=== PATIENT | male | born 1940 | race Caucasian/White ===

== ENCOUNTER → 2017-01-27 | Day surgery (SDC) | payer MEDICARE ==
[~2017-01-27] MED LIST: ACETAMINOPHEN 1000 MG/100 ML VIAL IV ONE; BUPIVACAINE/EPINEPHRINE 0.25% PF 30 ML VIAL INFIL ONE; GABA300C3 PO; LACTATED RINGER'S 1000 ML INJ 1,000 ML ONE; MELO7.5 PO; MIDAZOLAM HCL 2 MG/2 ML VIAL ONE; MULTTAB23 MT; ONDANSETRON HCL 4 MG/2 ML VIAL IV PUSH ONE; PROPOFOL 200 MG/20 ML AMP IV ONE; SIMV20TA PO; TAMS5CAP PO; ZANA4CAP PO
--- NOTE | 2017-01-27 08:49 | TN ---
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 PROCEDURE Elliptical incision measuring 2 x 1 cm to remove the offending lesion. ANESTHESIA TIVA. SURGEON Dr. Maria T ANTHONY The patient is a pleasant 76-year gentleman who has a squamous cell carcinoma to the top of his scalp. He has asked me to excise it. PROCEDURE The patient taken to the operating room, placed in the supine position. After anesthesia, his scalp is prepped with Betadine. It had been previously marked. An elliptical incision measuring 1 x 2 cm was made around the offending lesion. It is oriented length valladares and lateral. It is in the midline of his scalpel. After we anesthetized the area, we made this 2 x 1 cm elliptical incision. The specimen is removed. The anterior edge was marked with a superior stitch for orientation. The area in question is irrigated. Hemostasis is used with the electrocautery device. We then just reapproximate the defect with 3-0 nylon interrupted suture. A sterile bandage was applied. The patient tolerated the procedure well and had no immediate postop complications. MD MATILDE Stovall/BASSAM /8:32 AM /8:41 AM
== END | disposition home or self-care (01) ==
LOC: ESDC 06:37
PROVIDERS: ATTEND Surgery
DX: C44.42 Squamous cell carcinoma of skin of scalp and neck (principal)
CPT/HCPCS: 00300; 11622; 88305; J0131; J2250; J2405; J3010; J7120

== ENCOUNTER 2017-11-03 08:48 | Day surgery (SDC) | payer MEDICARE ==
[~2017-11-03] VITALS: Ht 182.9 cm; Wt 104.5 kg
[~2017-11-03 08:48] MED LIST changes: -ACETAMINOPHEN 1000 MG/100 ML VIAL IV ONE; +ALPH600C; -BUPIVACAINE/EPINEPHRINE 0.25% PF 30 ML VIAL INFIL ONE; +CINN500C2 PO; -GABA300C3 PO; +GABA300C5 PO; -LACTATED RINGER'S 1000 ML INJ 1,000 ML ONE; -MELO7.5 PO; +METF500T PO; -MIDAZOLAM HCL 2 MG/2 ML VIAL ONE; +MULT-65 PO; -MULTTAB23 MT; -ONDANSETRON HCL 4 MG/2 ML VIAL IV PUSH ONE; -PROPOFOL 200 MG/20 ML AMP IV ONE; +TAMS0.4C4; -TAMS5CAP PO; +TIZA4CAP3 PO; -ZANA4CAP PO
[2017-11-03 09:09] VITALS: BP 155/81; PULSE 71; RESP 20; TEMP 97.6; O2SAT 95
[2017-11-03 09:48] LABS: BASOPHIL % 0.4 % (0.0-2.0); EOSINOPHIL # 0.1 TH/MM3 (0-0.4); EOSINOPHIL % 1.1 % (0.0-4.0); HEMATOCRIT 34.9 % (39.0-51.0); HEMOGLOBIN 12.2 GM/DL (13.0-17.0); MEAN CELL VOLUME 84.5 FL (80.0-100.0); MEAN CORPUSCULAR HEMOGLOBIN 29.6 PG (27.0-34.0); MEAN PLATELET VOLUME 8.8 FL (7.0-11.0); MONO % 11.1 % (0.0-8.0); MONOCYTE # 0.8 TH/MM3 (0-0.9); NEUT % 58.4 % (16.0-70.0); PLATELET COUNT 83 TH/MM3 (150-450); RED BLOOD COUNT 4.13 MIL/MM3 (4.50-5.90); RED CELL DISTRIBUTION WIDTH 15.3 % (11.6-17.2); WHITE BLOOD COUNT 6.9 TH/MM3 (4.0-11.0)
[2017-11-03 09:59] LABS: PROTHROMBIN TIME - PATIENT 11.5 SEC (9.8-11.6)
[2017-11-03] MEDS ORDERED: SODIUM CHLOR 0.9% 1000 ML INJ 1,000 ML IV SCH (10:00)
[2017-11-03 10:01] LABS: INTERNATIONAL NORMALIZED RATIO 1.1 RATIO
[2017-11-03 10:27] LABS: OVALOCYTES 1+ (NORMAL)
[2017-11-03 10:28] LABS: ACANTHOCYTES OCC (NORMAL)
[2017-11-03] MEDS ORDERED: fentaNYL CITRATE 250 MCG/5 ML AMP ONE (11:55)
[2017-11-03] MEDS ORDERED: MIDAZOLAM HCL 5 MG/5 ML VIAL ONE (11:55)
--- NOTE | 2017-11-03 13:04 | PD.RAD ---
Post CT Procedure Prog Note Pre Procedure Diagnosis: (1) Melanoma Post Procedure Diagnosis: (1) Melanoma Procedure Date: November 03, 2017 Supervising Radiologist: Mulugeta Aggarwal Anesthesia: Local, Conscious Sedation Plan of Activity Patient to Unit: ROPU Patient Condition: Good See PACS Report for procedural detail/treatment Biopsy Imaging Guidance: CT Side: Left Biopsy Procedure: Bone Marrow Specimen: Core Biopsy, Fine Needle Aspirate Findings: Left ilium Mulugeta Aggarwal MD November 03, 2017 13:04
[2017-11-03 13:10] VITALS: BP 135/68; PULSE 65; RESP 16; TEMP 97.6; O2SAT 90
[2017-11-03 13:25] VITALS: BP 123/73; PULSE 67; RESP 16; O2SAT 94
[2017-11-03 13:40] VITALS: BP 123/73; PULSE 65; RESP 16; O2SAT 94
[2017-11-03 14:10] VITALS: BP 130/63; PULSE 63; RESP 16; O2SAT 94
[2017-11-03 14:40] VITALS: BP 131/71; PULSE 65; RESP 16; O2SAT 94
--- NOTE | 2017-11-03 14:58 | RADRPT ---
EXAM DATE: 11/03/2017 2:51 PM EDT AGE/SEX: 77 years / Male INDICATIONS: Malignant melanoma. CLINICAL DATA: This is the patient's initial encounter. Patient reports that signs and symptoms have been present for 1 day and indicates a pain score of 0/10. MEDICAL/SURGICAL HISTORY: Malignancy. Diverticulitis. Diabetes mellitus type II. Malignant m elanoma. BPH. Cholecystectomy. Vasectomy. COMPARISON: No prior [facility] exams available for comparison. SEDATION TIME (min): 15 BIOPSY SITE: Left pelvic ilium MEDICATION(S): 2.5 mg midazolam (Versed) IV 150 mcg fentanyl (Sublimaze) IV DEVICE(S): 20 gauge BARD biopsy needle . . PROCEDURE: CT guided Left pelvic ilium biopsy Conscious sedation with continuous EKG and oximetry monitoring. Prior to the procedure informed consent was obtained. Any appropriate prior imaging studies were rev iewed. Using automated exposure control and adjustment of the mA and/or kV according to patient size , radiation dose was kept as low as reasonably achievable to obtain optimal diagnostic quality images . DICOM format image data is available electronically for review and comparison. The site was prepped in a sterile fashion. Full sterile technique was used, including cap, mask, marii rile gloves and gown and a large sterile sheet. Hand hygiene and 2% chlorhexidine and/or betadine/al cohol prep was utilized per protocol for cutaneous antisepsis. The skin and subcutaneous tissues wer e infiltrated with local anesthetic solution. With CT guidance the previously identified target was localized. Biopsy was performed using the presc ribed needle as above. Following biopsy marrow aspiration was performed with repeat puncture. Adequa te hemostasis was obtained with compression at the puncture site. Follow-up CT scan reveals no hemorrhage. Conscious sedation was performed with the prescribed dosages and duration as above in the presence of an independent trained radiology nurse to assist in the monitoring of the patient. EKG and oximetry remained stable throughout the procedure. The patient tolerated the procedure well and there were no complications. The patient was sent to Radiology Outpatient Unit in stable condition. CONCLUSION: 1. Uncomplicated CT guided bone marrow aspirate. 2. Uncomplicated CT guided bone marrow biopsy. Electronically signed by: Mulugeta Aggarwal MD 11/03/2017 2:57 PM EDT
== END 2017-11-03 15:00 | disposition home or self-care (01) ==
LOC: HRAD 08:48 → HRIP 08:55 → HRAD 15:00
PROVIDERS: ATTEND Internal Medicine Hematology & Oncology
DX: D69.6 Thrombocytopenia, unspecified (principal); C43.9 Malignant melanoma of skin, unspecified; E11.9 Type 2 diabetes mellitus without complications; N40.0 Benign prostatic hyperplasia without lower urinary tract symptoms; K57.92 Diverticulitis of intestine, part unspecified, without perforation or abscess without bleeding; M51.37 Other intervertebral disc degeneration, lumbosacral region
CPT/HCPCS: 38222; 77012; 85025; 85097; 85610; 85730; 88184; 88185; 88237; 88264; 88280; 88305; 88311; 88313; 99152; C1830; J2250; J3010; J7030

== ENCOUNTER 2018-05-25 06:25 | Inpatient (IN) ==
[2018-05-25] MEDS ORDERED: Metoprolol Tartrate 25 MG Tablet PO ONE (07:00)
[2018-05-25] MEDS ORDERED: Vancomycin Inj 1,000 MG in Sodium Chlor 0.9% Inj 250 ML IV.SIG ONE (07:00)
[2018-05-25] MEDS ORDERED: Chlorhexidine Gluconate 2% 1 Pack (2 Cloths) TOPICAL ONE (07:00)
[2018-05-25] MEDS ORDERED: Sodium Chlor 0.9% Inj 500 ML IV.CONT ONE (07:00)
[2018-05-25] MEDS ORDERED: Thrombin Topical Soln 5,000 UNIT Vial TOPICAL ONE (07:03)
[2018-05-25] MEDS ORDERED: ceFAZolin 1 GM Premix Inj 0 GM/0 ML PIGGYBACK IV.SIG ONE (07:03)
[2018-05-25] MEDS ORDERED: Gelatin Size 100 Topical Foam ONE (07:03)
[2018-05-25] MEDS ORDERED: Bupivacaine/Epinephrine 0.5% Inj 50 ML Vial ONE (07:03)
[2018-05-25] MEDS ORDERED: Propofol Inj 500 MG/50 ML Vial ONE (07:16)
[2018-05-25] MEDS ORDERED: fentaNYL Citrate Inj 250 MCG/5 ML Ampul ONE (07:16)
[2018-05-25] MEDS ORDERED: fentaNYL Citrate Inj 100 MCG/2 ML Ampul ONE (08:11)
[2018-05-25] MEDS ORDERED: Heparin - SQ 10,000 UNITS/ML Vial ONE (08:12)
[2018-05-25 11:38] LABS: Baso # (Auto) 0.1 th/mm3 (0.0-0.2); Baso % (Auto) 0.6 % (0.0-2.0); Eos # (Auto) 0.1 th/mm3 (0.0-0.4); Eos % (Auto) 0.6 % (0.0-4.0); Hematocrit 28.2 % (39.0-51.0); Hemoglobin 9.9 gm/dL (13.0-17.0); Lymph # (Auto) 1.8 th/mm3 (1.0-4.8); Lymph % (Auto) 16.4 % (9.0-44.0); Mean Corpuscular HGB Conc 35.1 % (32.0-36.0); Mean Corpuscular Hemoglobin 30.5 pg (27.0-34.0); Mean Platelet Volume 7.9 fL (7.0-11.0); Mono # (Auto) 0.9 th/mm3 (0.0-0.9); Mono % (Auto) 8.4 % (0.0-8.0); Neut # (Auto) 8.2 th/mm3 (1.8-7.7); Platelet Count 118 th/mm3 (150-450); Red Blood Count 3.24 mil/mm3 (4.50-5.90); Red Cell Distribution Width 15.5 % (11.6-17.2); White Blood Count 11.1 th/mm3 (4.0-11.0)
[2018-05-25] MEDS ORDERED: Bisacodyl 10 MG Supp RECTAL PRN (12:49)
[2018-05-25] MEDS ORDERED: Morphine Sulfate Inj 2 MG/ML Vial IV.PUSH PRN (12:49)
[2018-05-25] MEDS ORDERED: HYDROmorphone PCA Inj 6 MG/30 ML PCA.VIAL PCA PRN (12:54)
[2018-05-25] MEDS ORDERED: Naloxone Inj 0.4 MG/ML Vial IV.PUSH PRN (12:54)
[2018-05-25] MEDS ORDERED: HYDROmorphone PCA Inj 6 MG/30 ML PCA.VIAL PCA ONE (14:04)
--- NOTE | 2018-05-25 14:12 | XR ---
EXAM DATE: 05/25/2018 2:02 PM EST AGE/SEX: 78 years / Male INDICATIONS: Stenosis, fusion L4-5, hardware placement CLINICAL DATA: This is the patient's initial encounter. Patient reports that signs and symptoms have been present for 1 day and indicates a pain score of 0/10. MEDICAL/SURGICAL HISTORY: None. None. COMPARISON: No prior exams available for comparison. FINDINGS: AP and lateral coned down views of the lower lumbar spine were obtained intraoperatively using a matr ix camera demonstrate that the patient is status post fusion at the L4-5 level with bilateral pedicle screws and posterior fixation rods. Metallic markers are noted in the interspaces. There is a supervisor tellers ior surgical drain in place. The alignment is intact. The disc spaces are preserved. The study is lab eled assuming 5 nonrib-bearing vertebral bodies. CONCLUSION: Status post fusion at the L4-5 level. Electronically signed by: Randy Reilly MD 05/25/2018 2:10 PM EST
--- NOTE | 2018-05-25 14:14 | P.OP ---
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 Microsurgical dissection Anesthesia: GETA Surgeon: Kyrie Benavidez MD Sheriffs Detective: Milad Calzada Pathology: none sent Operation and Findings: INDICATIONS FOR THE SURGICAL PROCEDURE mr Nichols is a 78 year-old male with history of a prior L4-5 laminectomy and discectomy who presented with intractable mechanical back pain and praveen evidence of L5 lower extremity radiculopathy. He failed maximum nonsurgical management including multiple modalities of nonoperative treatment. A surgical decompression and arthrodesis were indicated as a last resort. The [id number] details of the procedure, indications, alternatives, risks and potential complications were fully discussed with the patient. The patient fully understood. All the questions were answered. No guarantees were given. The patient voiced requesting the procedure and provided informed consents. The patient was offered the alternative of delaying the procedure and continuing with nonsurgical management. DETAILS OF THE SURGICAL PROCEDURE Prior to the procedure, the surgical incision was marked in the preoperative surgical holding room, and the procedure, risks, and potential complications revisited with the patient. Placement of electrodes for intraoperative neurophysiological monitoring was completed. The patient was taken to the operative room, and following induction of general anesthesia, endotracheal intubation was performed. A Dougherty catheter, bilateral JACKELYN hose and sequential compression devices were placed and kept throughout the procedure. The patient was positioned prone, over a Romulo table over a bolsters. All pressure in the preoperative surgical holding room points were carefully padded with eggcrate and gel mattress. The eyes were tapped shut after ointment was applied by the anesthesiologist to prevent corneal abrasion. A Kelsey hugger was placed over the exposed lower body to maintain control of the core body temperature. The electrophysiological team placed the needles and electrodes in their proper location and baseline SSEP's and EMG potentials were registered. The entrance to each pedicles was marked using a C arm. The lumbar region was prepped and draped in the usual sterile fashion. The surgical procedure was performed in several steps as follow: SURGICAL APPROACH Once the patient was positioned, a localizing cross-table lateral x-ray was performed with a C-arm. Two paramedian small incisions were outlined on the skin approximately 3cm from the midline. The skin incisions were made with a # 10 blade. Small bleeders were controlled with the cautery. The dissection was then carried out into deper planes and through the thoracolumbar fascia with a Bovie. The intermuscular septum was identified and the myscles were blunted dissected along the septum. The facets and transverse process of L4 and L5 were exposed and the proper anatomical landmarks were identidied. A microsurgical self-retaining retractor was placed on the incision, and a localizing lateralizing cross-table x-ray was performed with an instrument underneath a lamina of the lumbar spine. INSTRUMENTAL FIXATION At this point in the procedure, placement of bilateral transpedicular screws was necessary for stabilization of the spine. Initially, the entry point for the screw was selected anatomically at the junction of the facet, with the transverse process, and the pars interarticularis at L4 and L5. This was started with a Giamshetti needle followed by the use of a syed wire. A tap was used to create the threads for the screws. Finally bilateral transpedicular screws were carefully placed bilaterally at L4, and L5 under fluoroscopic visualization. An appropriate purchase was achieved with all screws. The position of each screw was assessed anatomically with an AP, lateral, oblique Xrays. An intraoperative scan view of the spine was then performed using the iso -centric c-arm. Each screw was then assessed electrophysiologically stimulating each screw with a nerve stimulator. SURGICAL DECOMPRESSION There was significant mass effect with compression of the neural structures. In order to relieve neural compression, it was necessary to perform a decompressive laminectomy, with decompression of the spinal canal and bilateral lateral recesses. Note that the scope of such decompression was significantly more extensive than the minimal exposure necessary to perform an interbody fusion, as there was extreme facet arthropathy with near complete collapse of the disk spaces and severe stenosis cause by the hyperthrophic joint facets. At this point of the procedure the operative microscope was draped in the usual sterile fashion and brought to the field. The rest of the surgical procedure was performed using microdissection technique with the exception of the closure. Under the operating microscope, once the level was confirmed, the margins of the prior laminectomy were exposed. There was extensive scar tissue from the prior surgery. Once the bony margins were exposed, a laminectomy was performed extending slightly the prior opening using the TPS drill with an 4mm drill bit. The facets were abnormal with mechanical instability. A medial facetectomy was performed and the superior free border of the ligamentum flavum was dissected with a ligament dissector and removed with a thin footplate 2 mm Kerrison. The scar tissue was carefully dissected from the dural sac and the right L5 nerve root was identified and followed towards its exit into the foramen. A foraminotomy was done. A disk protusion was compressing the neural structures and exiting nerve roots. A near complete facetectomy was necessary for the approach, resulting in further instability. The ligamentum flavum appeared hypertrophic, resulting on mass effect on the dorsal surface of the neural structures. The superior free border of the ligamentum flavum was elevated with a ligament dissector and the ligamentum flavum was removed with a 3 and 4 mm Kerrison forceps. The ligament was very adherent to the dural sac and during the dissection, and extreme care was taken during the dissection. Epidural veins located laterally to the dural sac were coagulated with the bipolar cautery, and then incised using microscissors. Gentle medial retraction of the dural sac allowed me to expose the disc space for the discectomy. INTERBODY ARTHRODHESIS In order to correct the narrowing of the disk space and maintain distraction of the space, and to achieve a solid interbody fusion, it was necessary the insertion of an interbody device into the disk space. Otherwise, the disk space would collapse, compromising the result of the surgical procedure. At this point of the procedure, the annulus fibrosus of the disk was carefully coagulated with a bipolar cautery and incised using an 11 bladed knife. Then, a microdiscectomy was carried out in a standard fashion using a combination of straight and up-biting pituitary forceps. A reverse angle curette was applied underneath the posterior longitudinal ligament, and used to push the disk fragments into the disk space, so they can be safely removed with a pituitary forceps. Once the discectomy was completed, it was necessary to decorticate the endplates, in order to eliminate the cartilaginous endplate and to expose healthy bone appropriate to perform the interbody fusion. The endplates at L4- L5 were then thoroughly decorticated using increasing size bone jeniffer and ring curets, eliminating the cartilaginous fragments from both, the superior and inferior endplates. A disk space distractor was applied to the pedicle screws and gentle distraction was applied. This maneuver was assisted by the use of a disk distractor. Increased motility was noted at the disk, which was consistent with instability due to facet arthropathy. Once a thorough preparation of the disk space was achieved, the disk space was irrigated with antibiotic solution, and the interbody fusion was performed by carefully impacting an expandable PPEK cage filled with autologous bone graft. The cage was cartefully expanded. A solid position of the cage with good purchase was achieved. The position of the cage was assessed anatomically with a probe and radiologically with the C-arm. POSTEROLATERAL FUSION The posterolateral fusion is a critical component to the procedure, to prevent future fatigue and failure of the instrumental fixation. Initially, the transverse processes of the vertebral bodies, lateral surface of the facets and the lateral gutters of the spine were carefully cleaned, eliminating all soft tissue and muscle attachments. The area was then irrigated with a large amount of antibiotic solution. Subsequently, the transverse processes, lateral surface of the facets, and lateral gutters of the spine were thoroughly decorticated using the TPS drill with a 5mm cutting griselda, exposing cancellous bone, in preparation for the posterolateral fusion. The incision was again irrigated with antibiotic solution. Then, the posterolateral fusion was then performed by carefully packing the lateral gutters of the spine at L4-L5 with autologous bone, combined with demineralized bone matrix. COMPLETION OF THE INSTRUMENTATION AND CLOSURE The rods were brought to the field, applied to all the screws, and the screw caps were sequentially applied. Compression was performed between the pedicle screws, and final tightening of the screws was completed using a torque wrench. The incision was again thoroughly irrigated with several liters of antibiotic solution, and hemostasis secured with the bipolar cautery. A Valsalva Maneuver performed by the anesthesiologist failed to show any evidence of cerebrospinal fluid leak or bleeding. A 10 mm Romulo-Mullen drain was left in the epidural space and externalized through a separate stab incision. The incision was then closed in planes. 0 Vicryl was used in an interrupted fashion to close the thoracolumbar fascia and the superficial fascia. The subcutaneous tissue was then approximated using 3-0 Vicryl in an interrupted fashion. Special care was taken to avoid space. The skin was then closed with 4-0 Vicryl in a running, subcuticular fashion. Dermabond was applied to the skin. Each plane of closure was irrigated with antibiotic solution. At the end of the procedure the sponge, needle and instrument counts were all correct. Estimated blood loss was 300 Cc. No blood transfusion was given. The entire procedure was performed using continuous electrophysiological monitoring of the somatosensorial evoked potentials and EMG. The patient received prophylactic antibiotics. The patient was then extubated and transferred to the recovery room in stable condition.
[2018-05-25] MEDS: Sod Chloride 0.9% Inj 1,000 ML IV.CONT SCH (14:15)
[2018-05-25 14:47] LABS: Hematocrit 29.7 % (39.0-51.0); Hemoglobin 10.6 gm/dL (13.0-17.0); Mean Corpuscular HGB Conc 35.8 % (32.0-36.0); Mean Corpuscular Hemoglobin 31.2 pg (27.0-34.0); Mean Corpuscular Volume 87.1 fL (80.0-100.0); Mean Platelet Volume 7.8 fL (7.0-11.0); Platelet Count 106 th/mm3 (150-450); Red Blood Count 3.41 mil/mm3 (4.50-5.90); Red Cell Distribution Width 14.9 % (11.6-17.2); White Blood Count 16.8 th/mm3 (4.0-11.0)
[2018-05-25 15:01] LABS: Anion Gap 7 meq/L (5-15); Blood Urea Nitrogen 11 mg/dL (7-18); Calcium 7.8 mg/dL (8.5-10.1); Carbon Dioxide 26.2 meq/L (21.0-32.0); Chloride 108 meq/L (98-107); Glomerular Filtration Rate Greater Than 89 mL/min (>89); Glucose,Random 148 mg/dL (74-106); Potassium 3.4 meq/L (3.5-5.1); Sodium 141 meq/L (136-145)
--- NOTE | 2018-05-25 17:50 | P.CON ---
History of Present Illness Service: [facility] Consult date: 05/25/18 Requesting Physician: Kyrie Benavidez Reason for Consult: Medical management of myelodysplastic syndrome Primary Care Provider: Chente Rodriguez DO Chief Complaint: Back surgery History of Present Illness: 78-year-old male with past medical history significant for myeloblastic syndrome, osteoarthritis, back pain with radiculopathy, osteoarthritis, migraine headaches, diverticulitis, BPH and neuropathy who is being followed by Dr. Benavidez who presented to [facility] for laminectomy. [facility] consulted to assist with management of myelodysplastic syndrome. Discussed his diagnosis regarding myelodysplastic syndrome for which he follows up with hematology oncology Dr. Thurman. Patient was last seen by hematology oncology in March, agreed to continue monitoring platelet count with no acute treatment at the moment. Patient is seen and examined resting in bed comfortably with at bedside. He reports he is still feeling groggy after surgery. States that his back pain is 4/10 and is requesting his gabapentin twice a day for his neuropathy. He denies any nausea, vomiting, cough, shortness of breath, chest pain, dizziness or lightheadedness at the moment. Does not report any acute concerns or complaints at the moment. Review of Systems All other systems reviewed negative except as stated in HPI PMFSH - History History Provided By: Patient, Significant Other, Medical Record - Medical History Medical History: Medical History (Last Reviewed 05/25/18 @ 17:34 by Lazara Wiggins) Anxiety Arthritis Chronic back pain Gait difficulty High cholesterol History of diabetes mellitus History of skin cancer Keloid scar of skin Lumbar spondylolysis Myelodysplastic syndrome Peripheral neuropathy Prostate disorder Right knee meniscal tear Thrombocytopenia Trigger finger Wears glasses - Surgical History Surgical History: Surgical History (Last Reviewed 05/25/18 @ 17:35 by Lazara Wiggins) H/O carpal tunnel repair H/O laminectomy H/O microdiscectomy H/O neck surgery History of tonsillectomy and adenoidectomy - Family History Family History: Family History (Last Updated 05/25/18 @ 17:35 by Lazara Wiggins) Father Heart disease - Social History I have reviewed the patient's Social History: Yes - Tobacco History Second Hand Smoke Exposure: No Smoking Status: Former smoker - Alcohol History How Often Do You Have a Drink Containing Alcohol: Never - Substance Use History Substance History: No History of Abuse - Travel History Recent Travel in the [place] Within the Last 8 Weeks: No Recent Travel Out of the Country Within the Last 8 Weeks: No Medications and Allergies Active Medications: Active Medications Hydrocodone Bitart/Acetaminophen ([place] 10/325) 1 tab PO Q4H PRN PRN Reason: Pain Scale 1 To 5 Al Hydroxide/Mg Hydroxide (Milk Of Magnesia Liq) 30 ml PO Q12H PRN PRN Reason: Mild Constipation Albuterol (Albuterol Neb (Prn)) 2.5 mg NEB Q4HR NEB PRN PRN Reason: WHEEZING Alprazolam (Xanax) 0.25 mg PO BID PRN PRN Reason: Anxiety Bisacodyl (Dulcolax Supp) 10 mg RECTAL DAILY PRN PRN Reason: SEVERE CONSITIPATION Clonidine HCl (Catapres) 0.1 mg NG/OG Q6H PRN PRN Reason: SYS BP GREATER THAN 170 MMHG Enoxaparin Sodium (Lovenox Inj) 30 mg SQ DAILY SIMÓN Gabapentin (Neurontin) 900 mg PO BID SIMÓN Sodium Chloride (Ns Inj) 1,000 mls @ 30 mls/hr IV.SIG .Q24H SIMÓN Lactated Ringer's (Lr 1000 Ml Inj) 1,000 mls @ 30 mls/hr IV.CONT .Q24H ONE Stop: 05/26/18 06:59 Last Admin: 05/25/18 07:19 Dose: 30 mls/hr Sodium Chloride (Ns Inj) 500 mls @ 30 mls/hr IV.CONT .[id number] ONE Stop: 05/25/18 23:39 Last Admin: 05/25/18 07:42 Dose: Not Given Sodium Chloride (Ns Inj) 1,000 mls @ 100 mls/hr IV.CONT .Q10H SIMÓN Last Admin: 05/25/18 14:15 Dose: 100 mls/hr Vancomycin HCl 1,000 mg/ (Sodium Chloride) 250 mls @ 250 mls/hr IV.SIG Q12H SIMÓN Stop: 05/26/18 09:59 Hydromorphone/Sodium Chloride (Dilaudid Academic Manager Inj) 6 mg in 30 mls @ 0 mls/hr CASING BLOWER UNSCH PRN PRN Reason: prn pain Last Admin: 05/25/18 14:19 Dose: 0 mls/hr Lactulose (Lactulose Liq) 30 ml PO DAILY PRN PRN Reason: SEVERE CONSITIPATION Miscellaneous Information (Misc Nursing Information) 0 each OTHER UNSCH PRN PRN Reason: SEE LABEL COMMENTS Stop: 05/26/18 13:13 Morphine Sulfate (Morphine Inj) 2 mg IV.PUSH Q2H PRN PRN Reason: Pain Scale 1 to 6 Multivitamins/Minerals (Theragran-M) 1 tab PO DAILY SIMÓN Naloxone HCl (Narcan Inj) 0.4 mg IV.PUSH PRN PRN PRN Reason: SEE LABEL COMMENTS Pantoprazole Sodium (Protonix) 40 mg PO DAILY SIMÓN Pravastatin Sodium (Pravachol) 40 mg PO HS SIMÓN Senna/Docusate Sodium (Iona-Colace) 1 tab PO BID SIMÓN Sennosides (Senokot) 17.2 mg PO Q12H PRN PRN Reason: Moderate Constipation Tamsulosin HCl (Flomax) 0.4 mg PO BID SIMÓN Allergies Allergy/AdvReac Type Severity Reaction Status Date / Time codeine Allergy Severe behavior/ag Verified 05/25/18 07:12 gression penicillin G Allergy Severe Rash Verified 05/25/18 07:12 Home Medications Medication Instructions Recorded Confirmed Type alprazolam 0.25 mg PO BID PRN 05/18/18 05/25/18 History gabapentin 900 mg PO BID 05/18/18 05/25/18 History meloxicam 7.5 mg PO DAILY 05/18/18 05/25/18 History uh-mn-PG-vit P-rydfv-cur-coQ10 1 tab PO DAILY 05/18/18 05/25/18 History [Daily Multivitamin] simvastatin 20 mg PO QPM 05/18/18 05/25/18 History tamsulosin 0.4 mg PO BID 05/18/18 05/25/18 History Physical Exam Vital signs: Vital Signs 05/25/18 07:27 05/25/18 13:13 05/25/18 13:15 Temperature 98.8 F 97.5 F L Pulse Rate 72 69 69 Respiratory Rate 16 15 14 Blood Pressure 128/60 145/73 H 139/65 Pulse Oximetry 95 92 L 91 L 05/25/18 13:30 05/25/18 13:45 05/25/18 14:00 Temperature Pulse Rate 65 68 67 Respiratory Rate 15 15 20 Blood Pressure 123/59 L 123/62 124/65 Pulse Oximetry 97 93 L 93 L 05/25/18 14:30 05/25/18 15:00 05/25/18 15:30 Temperature Pulse Rate 67 70 76 Respiratory Rate 20 20 15 Blood Pressure 124/67 124/66 139/67 Pulse Oximetry 95 98 98 05/25/18 16:30 Temperature 97.5 F L Pulse Rate 69 Respiratory Rate 15 Blood Pressure 120/58 L Pulse Oximetry 96 Intake & Output 05/24/18 05/25/18 05/25/18 18:59 06:59 18:59 Intake Total 3094 / 3094 Output Total 650 / 650 Balance 2444 / 2444 Weight 105.1 kg 105.1 kg Intake: Anesthesia Amount 2500 / 2500 Intake (Blood Product) Amt 594 / 594 Plt Pheresis B Leukoreduced 221 / 221 Unit [id number] Plt Pheresis S Leukoreduced 373 / 373 Unit [id number] Output: Estimated Blood Loss 300 / 300 Urine Amount (Catheter) 350 / 350 Indwelling Urethral Catheter 350 / 350 Other: Weight On Admission 105.1 kg Narrative: GENERAL: Well-developed, obese male resting in bed appears groggy but awakens to voice. SKIN: Warm and dry. HEAD: Atraumatic. Normocephalic. EYES: Pupils equal and round. No scleral icterus. No injection or drainage. ENT: No nasal bleeding or discharge. Mucous membranes pink and moist. NECK: Trachea midline. CARDIOVASCULAR: Regular rate and rhythm. RESPIRATORY: No accessory muscle use. Clear to auscultation. Breath sounds equal bilaterally. GASTROINTESTINAL: Abdomen soft, non-tender, nondistended. + Bowel sounds MUSCULOSKELETAL: Extremities without clubbing, cyanosis, or edema. No obvious deformities. Back dressing dry and intact, JUAN drain with small amount of sanguinous drainage. NEUROLOGICAL: Groggy but awakens to voice, oriented x3. No obvious cranial nerve deficits. Motor grossly within normal limits. 5/5 muscle strength in the arms, bilateral lower extremities positive movement, positive pulses, decreased sensation (history of neuropathy). Normal speech. PSYCHIATRIC: Appropriate mood and affect; insight and judgment normal. - Urinary Catheter Management Indwelling Urethral Catheter Cath placed during this visit: yes Reason for continuing: Hourly intake/output Insertion date: 05/25/18 Insertion time: 09:10 Results - Labs CBC & Chem 7: 05/25/18 14:38 05/25/18 14:38 Labs: Laboratory Results - last 24 hr 05/25/18 05/25/18 05/25/18 07:20 07:34 08:55 WBC RBC Hgb Hct MCV MCH MCHC RDW Plt Count 70 L MPV Neut % (Auto) Lymph % (Auto) [place] % (Auto) Eos % (Auto) Baso % (Auto) Neut # (Auto) Lymph # (Auto) [place] # (Auto) Eos # (Auto) Baso # (Auto) WBC Differential Differential Comment Sodium Potassium Chloride Carbon Dioxide Anion Gap BUN Creatinine Estimated GFR Random Glucose Calcium Blood Type O Positive Blood Type Recheck Required Antibody Screen Negative MTS Gel Crossmatch Bld Prod Order Comment 05/25/18 05/25/18 05/25/18 08:55 10:01 11:20 WBC 11.1 H RBC 3.24 L Hgb 9.9 L Hct 28.2 L MCV 87.0 MCH 30.5 MCHC 35.1 RDW 15.5 Plt Count 118 L D MPV 7.9 Neut % (Auto) 74.0 H Lymph % (Auto) 16.4 [place] % (Auto) 8.4 H Eos % (Auto) 0.6 Baso % (Auto) 0.6 Neut # (Auto) 8.2 H Lymph # (Auto) 1.8 [place] # (Auto) 0.9 Eos # (Auto) 0.1 Baso # (Auto) 0.1 WBC Differential . Differential Comment Auto diff final Sodium Potassium Chloride Carbon Dioxide Anion Gap BUN Creatinine Estimated GFR Random Glucose Calcium Blood Type Blood Type Recheck Antibody Screen MTS Gel Crossmatch See Detail Bld Prod Order Comment 05/25/18 05/25/18 14:38 14:38 WBC 16.8 H D RBC 3.41 L Hgb 10.6 L Hct 29.7 L MCV 87.1 MCH 31.2 MCHC 35.8 RDW 14.9 Plt Count 106 L MPV 7.8 Neut % (Auto) Lymph % (Auto) [place] % (Auto) Eos % (Auto) Baso % (Auto) Neut # (Auto) Lymph # (Auto) [place] # (Auto) Eos # (Auto) Baso # (Auto) WBC Differential Differential Comment Sodium 141 Potassium 3.4 L Chloride 108 H Carbon Dioxide 26.2 Anion Gap 7 BUN 11 Creatinine 0.74 Estimated GFR Greater than 89 Random Glucose 148 H Calcium 7.8 L Blood Type Blood Type Recheck Antibody Screen MTS Gel Crossmatch Bld Prod Order Comment - Imaging Impressions Lumbar Spine X-Ray 05/25/18 00:00 CONCLUSION: Status post fusion at the L4-5 level. Assessment and Plan - Plan 78-year-old male with past medical history significant for myeloblastic syndrome, osteoarthritis, back pain with radiculopathy, osteoarthritis, migraine headaches, diverticulitis, BPH and neuropathy who is being followed by Dr. Benavidez who presented to [facility] for laminectomy. [facility] consulted to assist with management of myelodysplastic syndrome. 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 Microsurgical dissection -Back precautions per neurosurgery -Pain control with CASING BLOWER pump -JUAN drain in place, monitor drainage -Continue home dose gabapentin Myelodysplastic syndrome with 5 q. mutation (Dx confirmed at [facility]) -Follows up with Dr. Thurman as outpatient, last seen 04/06/18 -No treatment indicated on his last follow-up with plans for ongoing monitoring - PLT's this a.m 70, received 2units of PLTs and recheck was 106 -Increase in WBCs, likely reactive - Continue monitoring CBC Hypokalemia, mild -Replace orally, recheck labs in the a.m. Neuropathy BPH Migraine headaches HLD -Chronic condition stable, continue home medications DVT prophylaxissubcu Lovenox tomorrow Thank you Dr. Benavidez for this consultation, will continue to follow along. Discussed Condition With: Patient, nurse,
[2018-05-25] MEDS: Sod Chloride 0.9% Inj 1,000 ML IV.SIG SCH (17:53)
[2018-05-25] MEDS: Senna/Docusate Sodium 8.6/50 MG Tablet PO SCH (21:36)
[2018-05-25] MEDS: Gabapentin 300 MG Capsule PO SCH (21:36)
[2018-05-25] MEDS: Vancomycin Inj 1,000 MG in Sodium Chlor 0.9% Inj 250 ML IV.SIG SCH (21:37)
[2018-05-26] MEDS: Sod Chloride 0.9% Inj 1,000 ML IV.CONT SCH ×2 (00:55→08:37)
[2018-05-26 07:01] LABS: Hematocrit 27.9 % (39.0-51.0); Hemoglobin 9.9 gm/dL (13.0-17.0); Lymph % (Auto) 6.4 % (9.0-44.0); Mean Corpuscular HGB Conc 35.4 % (32.0-36.0); Mean Corpuscular Hemoglobin 30.7 pg (27.0-34.0); Mean Corpuscular Volume 86.6 fL (80.0-100.0); Mean Platelet Volume 8.5 fL (7.0-11.0); Mono # (Auto) 1.2 th/mm3 (0.0-0.9); Mono % (Auto) 7.6 % (0.0-8.0); Platelet Count 102 th/mm3 (150-450); Red Blood Count 3.23 mil/mm3 (4.50-5.90); Red Cell Distribution Width 15.2 % (11.6-17.2); White Blood Count 15.2 th/mm3 (4.0-11.0)
[2018-05-26 07:42] LABS: Anion Gap 7 meq/L (5-15); Blood Urea Nitrogen 11 mg/dL (7-18); Calcium 8.3 mg/dL (8.5-10.1); Carbon Dioxide 26.7 meq/L (21.0-32.0); Chloride 106 meq/L (98-107); Glomerular Filtration Rate Greater Than 89 mL/min (>89); Glucose,Random 134 mg/dL (74-106); Potassium 4.4 meq/L (3.5-5.1); Sodium 140 meq/L (136-145)
[2018-05-26] MEDS: Sod Chloride 0.9% Inj 1,000 ML IV.SIG SCH (08:20)
[2018-05-26] MEDS: Senna/Docusate Sodium 8.6/50 MG Tablet PO SCH ×2 (08:20→21:19)
[2018-05-26] MEDS: Multivitamin/Minerals Therapeutic Tablet PO SCH (08:20)
[2018-05-26] MEDS: Gabapentin 300 MG Capsule PO SCH ×2 (08:20→21:16)
[2018-05-26] MEDS: Vancomycin Inj 1,000 MG in Sodium Chlor 0.9% Inj 250 ML IV.SIG SCH (08:21)
--- NOTE | 2018-05-26 11:11 | P.PNCC ---
Subjective Brief History: This 78-year-old pleasant gentleman who is known to have myeloblastic syndrome, osteoarthritis, and benign prostatic hypertrophy with neuropathy was followed by Dr. Benavidez for a while for radiculopathy symptoms. The patient was now admitted and underwent L4-L5 lumbar laminectomy and cage placement and now placed in the ICU. The patient, at the time the consult was placed, still in recovery room. A 78-year-old gentleman with multiple medical problems including myelodysplastic syndrome. He will be placed in the ICU. Platelet count is 102,000. After receiving a single donor platelets 2 packs in the OR, apparently. Hemoglobin remained stable. We will see how the patient does overnight and probably will be transferred tomorrow to the floor. 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 and I would probably leave this for another day Hemodynamically patient is stable with good blood pressure and hemodynamic values Hematologically intact and received 2 units of single donor platelet packs in the OR Bilateral good breath sounds good inspiratory effort Patient is currently in chair Abdomen soft active bowel sounds patient had good breakfast Renal function preserved In general patient is somewhat fluid overloaded and should be diuresed gently We will give 20 of Lasix and diuresis for a few hours before removing the Dougherty catheter Patient can safely be transferred to the floor Objective Vital Signs / I&O: Vital Signs 05/25/18 13:13 05/25/18 13:15 05/25/18 13:30 Temperature 97.5 F L Pulse Rate 69 69 65 Respiratory Rate 15 14 15 Blood Pressure 145/73 H 139/65 123/59 L Pulse Oximetry 92 L 91 L 97 05/25/18 13:45 05/25/18 14:00 05/25/18 14:30 Temperature Pulse Rate 68 67 67 Respiratory Rate 15 20 20 Blood Pressure 123/62 124/65 124/67 Pulse Oximetry 93 L 93 L 95 05/25/18 15:00 05/25/18 15:30 05/25/18 16:30 Temperature 97.5 F L Pulse Rate 70 76 69 Respiratory Rate 20 15 15 Blood Pressure 124/66 139/67 120/58 L Pulse Oximetry 98 98 96 05/25/18 17:45 05/25/18 19:00 05/25/18 19:05 Temperature Pulse Rate 76 75 Respiratory Rate 20 17 17 Blood Pressure 128/61 126/61 Pulse Oximetry 97 97 05/25/18 19:10 05/25/18 19:15 05/25/18 19:20 Temperature Pulse Rate 75 72 71 Respiratory Rate 22 17 16 Blood Pressure 121/57 L 123/60 116/56 L Pulse Oximetry 96 97 97 05/25/18 19:25 05/25/18 19:30 05/25/18 19:35 Temperature Pulse Rate 71 70 70 Respiratory Rate 9 L 6 L 12 Blood Pressure 121/57 L 119/63 122/63 Pulse Oximetry 96 92 L 96 05/25/18 19:40 05/25/18 19:45 05/25/18 19:50 Temperature 98.1 F Pulse Rate 83 70 72 Respiratory Rate 34 H 7 L 12 Blood Pressure 118/59 L 107/64 108/59 L Pulse Oximetry 95 94 L 89 L 05/25/18 19:55 05/25/18 20:00 05/25/18 20:05 Temperature Pulse Rate 72 72 76 Respiratory Rate 8 L 7 L 6 L Blood Pressure 103/55 L 101/57 L 106/60 Pulse Oximetry 90 L 95 94 L 05/25/18 20:10 05/25/18 20:15 05/25/18 21:00 Temperature Pulse Rate 75 75 80 Respiratory Rate 7 L 7 L 13 Blood Pressure 104/58 L 113/62 Pulse Oximetry 96 95 91 L 05/25/18 21:59 05/25/18 22:00 05/25/18 23:00 Temperature Pulse Rate 74 78 75 Respiratory Rate 11 L 19 12 Blood Pressure 132/64 Pulse Oximetry 98 98 95 05/26/18 00:00 05/26/18 00:45 05/26/18 01:00 Temperature 98 F Pulse Rate 79 79 77 Respiratory Rate 13 11 L 11 L Blood Pressure 127/62 Pulse Oximetry 94 L 92 L 95 05/26/18 02:00 05/26/18 03:00 05/26/18 04:00 Temperature Pulse Rate 79 78 82 Respiratory Rate 9 L 12 14 Blood Pressure Pulse Oximetry 95 96 96 05/26/18 08:21 Temperature Pulse Rate Respiratory Rate 20 Blood Pressure Pulse Oximetry Intake & Output 12/12/18 12/13/18 12/13/18 18:59 06:59 18:59 Intake Total 3344 / 3344 3990 / 3990 1000 / 1000 Output Total 650 / 650 2860 / 2860 Balance 2694 / 2694 1130 / 1130 1000 / 1000 Weight 105.1 kg 113.7 kg Intake: IV 250 / 250 1250 / 1250 1000 / 1000 NS Inj 1,000 ML @ 100 mls/hr IV 1000 / 1000 1000 / 1000 .CONT .Q10H SIMÓN Rx#:[id number] Vancomycin Inj 1,000 MG In NS 250 / 250 250 / 250 Inj 250 ML @ 250 mls/hr IV.SIG Q12H SIMÓN Rx#:[id number] Oral 240 / 240 Anesthesia Amount 2500 / 2500 2500 / 2500 Intake (Blood Product) Amt 594 / 594 Plt Pheresis B Leukoreduced 221 / 221 Unit [id number] Plt Pheresis S Leukoreduced 373 / 373 Unit [id number] Output: Estimated Blood Loss 300 / 300 300 / 300 Urine Amount (Catheter) 350 / 350 2500 / 2500 Indwelling Urethral Catheter 350 / 350 2500 / 2500 Wound Drainage 60 / 60 # 1 Back 60 / 60 Other: Weight On Admission 105.1 kg Result Diagrams: 05/26/18 05:51 05/26/18 05:51 Imaging: Impressions Lumbar Spine X-Ray 05/25/18 00:00 CONCLUSION: Status post fusion at the L4-5 level. Assessment and Plan Attestation: Critical care time 32 minutes
--- NOTE | 2018-05-26 11:56 | P.PNNS ---
Subjective Interval history: reports pain controlled currently on FIRE TOWER KEEPER Physical Exam Vital signs: Vital Signs 05/25/18 13:13 05/25/18 13:15 05/25/18 13:30 Temperature 97.5 F L Pulse Rate 69 69 65 Respiratory Rate 15 14 15 Blood Pressure 145/73 H 139/65 123/59 L Pulse Oximetry 92 L 91 L 97 05/25/18 13:45 05/25/18 14:00 05/25/18 14:30 Temperature Pulse Rate 68 67 67 Respiratory Rate 15 20 20 Blood Pressure 123/62 124/65 124/67 Pulse Oximetry 93 L 93 L 95 05/25/18 15:00 05/25/18 15:30 05/25/18 16:30 Temperature 97.5 F L Pulse Rate 70 76 69 Respiratory Rate 20 15 15 Blood Pressure 124/66 139/67 120/58 L Pulse Oximetry 98 98 96 05/25/18 17:45 05/25/18 19:00 05/25/18 19:05 Temperature Pulse Rate 76 75 Respiratory Rate 20 17 17 Blood Pressure 128/61 126/61 Pulse Oximetry 97 97 05/25/18 19:10 05/25/18 19:15 05/25/18 19:20 Temperature Pulse Rate 75 72 71 Respiratory Rate 22 17 16 Blood Pressure 121/57 L 123/60 116/56 L Pulse Oximetry 96 97 97 05/25/18 19:25 05/25/18 19:30 05/25/18 19:35 Temperature Pulse Rate 71 70 70 Respiratory Rate 9 L 6 L 12 Blood Pressure 121/57 L 119/63 122/63 Pulse Oximetry 96 92 L 96 05/25/18 19:40 05/25/18 19:45 05/25/18 19:50 Temperature 98.1 F Pulse Rate 83 70 72 Respiratory Rate 34 H 7 L 12 Blood Pressure 118/59 L 107/64 108/59 L Pulse Oximetry 95 94 L 89 L 05/25/18 19:55 05/25/18 20:00 05/25/18 20:05 Temperature Pulse Rate 72 72 76 Respiratory Rate 8 L 7 L 6 L Blood Pressure 103/55 L 101/57 L 106/60 Pulse Oximetry 90 L 95 94 L 05/25/18 20:10 05/25/18 20:15 05/25/18 21:00 Temperature Pulse Rate 75 75 80 Respiratory Rate 7 L 7 L 13 Blood Pressure 104/58 L 113/62 Pulse Oximetry 96 95 91 L 05/25/18 21:59 05/25/18 22:00 05/25/18 23:00 Temperature Pulse Rate 74 78 75 Respiratory Rate 11 L 19 12 Blood Pressure 132/64 Pulse Oximetry 98 98 95 05/26/18 00:00 05/26/18 00:45 05/26/18 01:00 Temperature 98 F Pulse Rate 79 79 77 Respiratory Rate 13 11 L 11 L Blood Pressure 127/62 Pulse Oximetry 94 L 92 L 95 05/26/18 02:00 05/26/18 03:00 05/26/18 04:00 Temperature Pulse Rate 79 78 82 Respiratory Rate 9 L 12 14 Blood Pressure Pulse Oximetry 95 96 96 05/26/18 08:21 Temperature Pulse Rate Respiratory Rate 20 Blood Pressure Pulse Oximetry Intake & Output 05/25/18 05/26/18 05/26/18 18:59 06:59 18:59 Intake Total 3344 / 3344 3990 / 3990 1000 / 1000 Output Total 650 / 650 2860 / 2860 Balance 2694 / 2694 1130 / 1130 1000 / 1000 Weight 105.1 kg 113.7 kg Intake: IV 250 / 250 1250 / 1250 1000 / 1000 NS Inj 1,000 ML @ 100 mls/hr IV 1000 / 1000 1000 / 1000 .CONT .Q10H [facility] Rx#:[id number] Vancomycin Inj 1,000 MG In NS 250 / 250 250 / 250 Inj 250 ML @ 250 mls/hr IV.SIG Q12H [facility] Rx#:[id number] Oral 240 / 240 Anesthesia Amount 2500 / 2500 2500 / 2500 Intake (Blood Product) Amt 594 / 594 Plt Pheresis B Leukoreduced 221 / 221 Unit [id number] Plt Pheresis S Leukoreduced 373 / 373 Unit [id number] Output: Estimated Blood Loss 300 / 300 300 / 300 Urine Amount (Catheter) 350 / 350 2500 / 2500 Indwelling Urethral Catheter 350 / 350 2500 / 2500 Wound Drainage 60 / 60 # 1 Back 60 / 60 Other: Weight On Admission 105.1 kg Narrative: Awake, alert laying in bed NAD moves lower extremities well, limited exam due to postop pain - Urinary Catheter Management Indwelling Urethral Catheter Cath placed during this visit: yes Reason for continuing: Hourly intake/output Insertion date: 05/25/18 Insertion time: 09:10 Assessment and Plan - Plan 78 y/o male s/p L4-5 PLIF 05/25/18 cont postop pain control with FIRE TOWER KEEPER start mobilize OOB today with LSO brace Physical Therapy SCDs and TEDs cont JUAN draining, monitor output dc chavez catheter transfer out of ICU to case mgt for dc planning to CIR
--- NOTE | 2018-05-26 12:04 | MB ---
cc: Kim Mckenna MD DATE: 05/25/2018 CONSULTING PHYSICIAN: Dr. Mckenna, surgical critical care. REASON FOR CONSULTATION: Status post lumbar laminectomy, multiple medical problems. HISTORY OF PRESENT DISEASE: This 70-year-old pleasant gentleman who is known to have myeloblastic syndrome, osteoarthritis, and benign prostatic hypertrophy with neuropathy was followed by Dr. Tavera for a while for radiculopathy symptoms. The patient was now admitted and underwent L4-L5 lumbar laminectomy and cage placement and now placed in the ICU. The patient, at the time of the consult was placed, patient was still in recovery room. PAST MEDICAL HISTORY: As noted of diabetes mellitus myelodysplastic syndrome with thrombocytopenia treated by heme-onc service, peripheral neuropathy, hypercholesteremia, arthritis, BPH. PAST SURGICAL HISTORY: Previous laminectomy and neck fusion, tonsillectomy, and carpal tunnel repair. SOCIAL HISTORY: The patient does not smoke, but used to. Does not drink. PHYSICAL EXAMINATION: GENERAL: Reveals a pleasant 78-year-old gentleman still sleepy from anesthesia Normocephalic. No trauma to the head. Pupils equal, reactive. Extraocular muscles cannot be tested right now. NECK: Bilateral carotid pulses. No bruits. CHEST: Bilateral breath sounds. The patient was extubated after surgery. HEART: Regular rate and rhythm, hemodynamically stable. ABDOMEN: Soft. No rebound, no guarding, no masses. EXTREMITIES: The patient has palpable femoral and dorsalis pedis and posterior tibial pulses. NEUROLOGIC: Cannot be performed at this time. The patient is too sleepy. He is to get a GUNSTOCK SPRAY UNIT ADJUSTER pump and be placed in the ICU. IMPRESSION: A 78-year-old gentleman with multiple medical problems including myelodysplastic syndrome. He will be placed in the ICU. Platelet count is 102,000. After receiving a single donor platelets 2 packs in the OR, apparently. Hemoglobin remained stable. We will see how the patient does overnight and probably will be transferred tomorrow to the floor. Critical care time: 32 minutes. MD JIMENA House/peter/angelina , 11:07 AM , 11:14 AM
[2018-05-26] MEDS: Enoxaparin Inj 30 MG/0.3 ML Syringe SQ SCH (13:14)
[2018-05-27] MEDS: Sod Chloride 0.9% Inj 1,000 ML IV.CONT SCH ×2 (08:07→14:35)
[2018-05-27] MEDS: Sod Chloride 0.9% Inj 1,000 ML IV.SIG SCH (08:07)
[2018-05-27] MEDS: Enoxaparin Inj 30 MG/0.3 ML Syringe SQ SCH ×2 (08:08→08:26)
[2018-05-27] MEDS: Gabapentin 300 MG Capsule PO SCH ×2 (08:08→21:04)
[2018-05-27] MEDS: Multivitamin/Minerals Therapeutic Tablet PO SCH (08:08)
[2018-05-27] MEDS: Senna/Docusate Sodium 8.6/50 MG Tablet PO SCH ×2 (08:08→21:04)
--- NOTE | 2018-05-27 10:17 | P.PNCC ---
Subjective Brief History: This 78-year-old pleasant gentleman who is known to have myeloblastic syndrome, osteoarthritis, and benign prostatic hypertrophy with neuropathy was followed by Dr. Benavidez for a while for radiculopathy symptoms. The patient was now admitted and underwent L4-L5 lumbar laminectomy and cage placement and now placed in the ICU. The patient, at the time the consult was placed, still in recovery room. A 78-year-old gentleman with multiple medical problems including myelodysplastic syndrome. He will be placed in the ICU. Platelet count is 102,000. After receiving a single donor platelets 2 packs in the OR, apparently. Hemoglobin remained stable. We will see how the patient does overnight and probably will be transferred tomorrow to the floor. 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 Hemodynamically patient is stable with good blood pressure and hemodynamic values Hematologically intact and received 2 units of single donor platelet packs in the OR Bilateral good breath sounds good inspiratory effort Patient is currently in chair Abdomen soft active bowel sounds patient had good breakfast Renal function preserved In general patient is somewhat fluid overloaded and should be diuresed gently We will give 20 of Lasix and diuresis for a few hours before removing the Dougherty catheter Patient can safely be transferred to the floor 05/27/2018 Patient is awake alert and oriented Apparently tonight he was slightly confused which is consistent with ICU delirium pain medication administration and general stress Bilateral good breath sounds good inspiratory effort Abdomen soft taking p.o. diet well Lumbar laminectomy management Dr. Benavidez DC Dougherty We will add Lidoderm patch/Toradol Will adjust pain medication and patient can transfer to the floor Objective Vital Signs / I&O: Vital Signs 05/26/18 10:09 05/26/18 11:00 05/26/18 11:57 Temperature Pulse Rate 83 75 Respiratory Rate 26 H 12 Blood Pressure 112/65 Pulse Oximetry 97 97 97 05/26/18 12:00 05/26/18 12:45 05/26/18 13:00 Temperature Pulse Rate 78 78 78 Respiratory Rate 18 15 24 Blood Pressure 146/64 H Pulse Oximetry 97 96 95 05/26/18 14:00 05/26/18 15:18 05/26/18 15:20 Temperature Pulse Rate 81 81 80 Respiratory Rate 11 L 24 16 Blood Pressure 90/45 L 107/53 L Pulse Oximetry 97 97 05/26/18 16:00 05/26/18 16:45 05/26/18 19:00 Temperature Pulse Rate 78 73 81 Respiratory Rate 13 19 22 Blood Pressure 115/57 L Pulse Oximetry 99 100 05/26/18 19:58 05/26/18 20:00 05/26/18 20:12 Temperature 99.5 F Pulse Rate 80 79 Respiratory Rate 26 H 21 Blood Pressure 123/58 L Pulse Oximetry 97 98 05/26/18 20:45 05/26/18 21:00 05/26/18 22:00 Temperature Pulse Rate 81 84 82 Respiratory Rate 14 19 12 Blood Pressure 133/71 Pulse Oximetry 96 95 96 05/26/18 23:00 05/27/18 00:00 05/27/18 00:45 Temperature Pulse Rate 80 81 81 Respiratory Rate 10 L 11 L 11 L Blood Pressure 150/66 H Pulse Oximetry 97 96 96 05/27/18 01:00 05/27/18 02:00 05/27/18 03:00 Temperature Pulse Rate 83 88 86 Respiratory Rate 12 12 12 Blood Pressure Pulse Oximetry 95 94 L 96 05/27/18 04:00 05/27/18 04:45 05/27/18 05:00 Temperature 98.5 F Pulse Rate 88 87 88 Respiratory Rate 13 13 0 L Blood Pressure 139/65 Pulse Oximetry 96 96 94 L 05/27/18 06:00 05/27/18 07:00 05/27/18 08:00 Temperature Pulse Rate 91 H 100 H 93 H Respiratory Rate 22 23 17 Blood Pressure Pulse Oximetry 95 96 94 L 05/27/18 08:08 05/27/18 08:44 05/27/18 08:45 Temperature Pulse Rate 103 H 103 H Respiratory Rate 18 22 20 Blood Pressure 142/63 H 130/65 Pulse Oximetry 93 L 93 L 05/27/18 09:00 Temperature Pulse Rate 101 H Respiratory Rate 15 Blood Pressure Pulse Oximetry 92 L Intake & Output 05/26/18 05/27/18 05/27/18 18:59 06:59 18:59 Intake Total 2260 / 2260 3280 / 3280 1250 / 1250 Output Total 1800 / 1800 3870 / 3870 Balance 460 / 460 -590 / -590 1250 / 1250 Weight 118.8 kg Intake: IV 1000 / 1000 1250 / 1250 NS Inj 1,000 ML @ 100 mls/hr IV 1000 / 1000 1000 / 1000 .CONT .Q10H [facility] Rx#:[id number] Oral 1260 / 1260 780 / 780 Anesthesia Amount 2500 / 2500 Output: Estimated Blood Loss 300 / 300 Urine Amount (Catheter) 1800 / 1800 3500 / 3500 Indwelling Urethral Catheter 1800 / 1800 3500 / 3500 Wound Drainage 70 / 70 # 1 Back 70 / 70 Result Diagrams: 05/26/18 05:51 05/26/18 05:51 - 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
--- NOTE | 2018-05-27 10:55 | P.PNNS ---
Subjective Interval history: sitting up in chair eating his breakfast, painful, confused overnight Physical Exam Vital signs: Vital Signs 05/26/18 11:00 05/26/18 11:57 05/26/18 12:00 Temperature Pulse Rate 83 75 78 Respiratory Rate 26 H 12 18 Blood Pressure 112/65 Pulse Oximetry 97 97 97 05/26/18 12:45 05/26/18 13:00 05/26/18 14:00 Temperature Pulse Rate 78 78 81 Respiratory Rate 15 24 11 L Blood Pressure 146/64 H Pulse Oximetry 96 95 97 05/26/18 15:18 05/26/18 15:20 05/26/18 16:00 Temperature Pulse Rate 81 80 78 Respiratory Rate 24 16 13 Blood Pressure 90/45 L 107/53 L Pulse Oximetry 97 99 05/26/18 16:45 05/26/18 19:00 05/26/18 19:58 Temperature 99.5 F Pulse Rate 73 81 80 Respiratory Rate 19 22 26 H Blood Pressure 115/57 L 123/58 L Pulse Oximetry 100 05/26/18 20:00 05/26/18 20:12 05/26/18 20:45 Temperature Pulse Rate 79 81 Respiratory Rate 21 14 Blood Pressure 133/71 Pulse Oximetry 97 98 96 05/26/18 21:00 05/26/18 22:00 05/26/18 23:00 Temperature Pulse Rate 84 82 80 Respiratory Rate 19 12 10 L Blood Pressure Pulse Oximetry 95 96 97 05/27/18 00:00 05/27/18 00:45 05/27/18 01:00 Temperature Pulse Rate 81 81 83 Respiratory Rate 11 L 11 L 12 Blood Pressure 150/66 H Pulse Oximetry 96 96 95 05/27/18 02:00 05/27/18 03:00 05/27/18 04:00 Temperature 98.5 F Pulse Rate 88 86 88 Respiratory Rate 12 12 13 Blood Pressure Pulse Oximetry 94 L 96 96 05/27/18 04:45 05/27/18 05:00 05/27/18 06:00 Temperature Pulse Rate 87 88 91 H Respiratory Rate 13 0 L 22 Blood Pressure 139/65 Pulse Oximetry 96 94 L 95 05/27/18 07:00 05/27/18 08:00 05/27/18 08:08 Temperature Pulse Rate 100 H 93 H Respiratory Rate 23 17 18 Blood Pressure Pulse Oximetry 96 94 L 05/27/18 08:44 05/27/18 08:45 05/27/18 09:00 Temperature Pulse Rate 103 H 103 H 101 H Respiratory Rate 22 20 15 Blood Pressure 142/63 H 130/65 Pulse Oximetry 93 L 93 L 92 L Intake & Output 05/26/18 05/27/18 05/27/18 18:59 06:59 18:59 Intake Total 2260 / 2260 3280 / 3280 1670 / 1670 Output Total 1800 / 1800 3870 / 3870 300 / 300 Balance 460 / 460 -590 / -590 1370 / 1370 Weight 118.8 kg Intake: IV 1000 / 1000 1250 / 1250 NS Inj 1,000 ML @ 100 mls/hr IV 1000 / 1000 1000 / 1000 .CONT .Q10H [facility] Rx#:[id number] Oral 1260 / 1260 780 / 780 420 / 420 Anesthesia Amount 2500 / 2500 Output: Estimated Blood Loss 300 / 300 Urine Amount (Catheter) 1800 / 1800 3500 / 3500 300 / 300 Indwelling Urethral Catheter 1800 / 1800 3500 / 3500 300 / 300 Wound Drainage 70 / 70 # 1 Back 70 / 70 Narrative: Awake, alert sitting up in chair with LSO brace moves lower extremities well, limited exam due to postop pain - Urinary Catheter Management Indwelling Urethral Catheter Cath placed during this visit: yes Reason for continuing: Hourly intake/output Insertion date: 05/25/18 Insertion time: 09:10 Assessment and Plan - Plan 78 y/o male s/p L4-5 PLIF 05/25/18 cont PT, rehab efforts appreciate critical care assistance SCDs and TEDs dc JUAN drain today transfer when cleared by critical care dc planning to CIR
[2018-05-27] MEDS: Ketorolac Inj 30 MG/ML (IVP) Vial IV.PUSH SCH ×4 (11:29→23:30)
[2018-05-27] MEDS: Lidocaine 5% Patch T-DERMAL SCH (11:29)
[2018-05-28] MEDS: Sod Chloride 0.9% Inj 1,000 ML IV.SIG SCH (07:00)
[2018-05-28] MEDS: Gabapentin 300 MG Capsule PO SCH ×2 (08:59→22:19)
[2018-05-28] MEDS: Multivitamin/Minerals Therapeutic Tablet PO SCH (08:59)
[2018-05-28] MEDS: Senna/Docusate Sodium 8.6/50 MG Tablet PO SCH ×2 (08:59→22:20)
[2018-05-28] MEDS: Lidocaine 5% Patch T-DERMAL SCH (09:00)
[2018-05-28] MEDS: Sod Chloride 0.9% Inj 1,000 ML IV.CONT SCH ×3 (11:00→13:26)
--- NOTE | 2018-05-28 14:16 | P.PNNS ---
Subjective Interval history: The patient is stable following lumbar reexploration with decompression and effusion with instrumentation at L4-5. Is now postoperative day #3. He continues to have difficulty urinating and has only ambulated around the bed. He has required straight catheterization. Physical Exam Vital signs: Vital Signs 05/27/18 15:00 05/27/18 16:00 05/27/18 17:00 Temperature Pulse Rate 96 H 92 H 89 Respiratory Rate 11 L 13 14 Blood Pressure Pulse Oximetry 96 05/27/18 18:00 05/27/18 19:00 05/27/18 19:49 Temperature 98.4 F Pulse Rate 90 93 H 90 Respiratory Rate 18 Blood Pressure 127/58 L Pulse Oximetry 05/27/18 20:00 05/27/18 20:43 05/27/18 21:01 Temperature Pulse Rate 87 90 Respiratory Rate 18 Blood Pressure Pulse Oximetry 93 L 05/28/18 00:50 05/28/18 04:52 05/28/18 08:52 Temperature 98.7 F 98.1 F 100.8 F H Pulse Rate 92 H 90 101 H Respiratory Rate 18 16 19 Blood Pressure 130/68 131/60 130/55 L Pulse Oximetry 93 L 93 L 88 L 05/28/18 11:07 05/28/18 11:33 05/28/18 12:00 Temperature 100.9 F H Pulse Rate 94 H Respiratory Rate 18 20 18 Blood Pressure 130/60 Pulse Oximetry 94 L Intake & Output 05/27/18 05/28/18 05/28/18 18:59 06:59 18:59 Intake Total 2350 / 2350 120 / 120 Output Total 800 / 800 800 / 800 Balance 1550 / 1550 120 / 120 -800 / -800 Intake: IV 1250 / 1250 NS Inj 1,000 ML @ 100 mls/hr IV 1000 / 1000 .CONT .Q10H [facility] Rx#:[id number] Oral 1100 / 1100 120 / 120 Output: Urine 800 / 800 Urine Amount (Catheter) 800 / 800 Indwelling Urethral Catheter 800 / 800 Other: Date of Last Bowel Movement 05/26/18 05/25/18 - Routine Neurological Exam The patient is awake and alert. He is somewhat drowsy. Mental status testing found him to be oriented by 2. His speech is fluent. Cranial nerve testing 2 through 12 is grossly intact. There were no focal motor or sensory deficits. He is continent. The dressing is dry and intact. - Urinary Catheter Management Indwelling Urethral Catheter Cath placed during this visit: yes Reason for continuing: Not indwelling catheter Insertion date: 05/25/18 Insertion time: 09:10 Assessment and Plan - Plan 78 y/o male s/p L4-5 PLIF 05/25/18 cont PT, rehab efforts appreciate critical care assistance SCDs and TEDs dc JUAN drain today transfer when cleared by critical care dc planning to [facility] May 28, 2018 We will continue the present management. We will restart his Flomax from a neurosurgical perspective I see no reason why he cannot be discharged or transferred for a course of inpatient rehabilitation. Neurosurgery will follow.
--- NOTE | 2018-05-28 15:08 | P.PNCC ---
Subjective Brief History: This 78-year-old pleasant gentleman who is known to have myeloblastic syndrome, osteoarthritis, and benign prostatic hypertrophy with neuropathy was followed by Dr. Benavidez for a while for radiculopathy symptoms. The patient was now admitted and underwent L4-L5 lumbar laminectomy and cage placement and now placed in the ICU. The patient, at the time the consult was placed, still in recovery room. A 78-year-old gentleman with multiple medical problems including myelodysplastic syndrome. He will be placed in the ICU. Platelet count is 102,000. After receiving a single donor platelets 2 packs in the OR, apparently. Hemoglobin remained stable. We will see how the patient does overnight and probably will be transferred tomorrow to the floor. 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 Hemodynamically patient is stable with good blood pressure and hemodynamic values Hematologically intact and received 2 units of single donor platelet packs in the OR Bilateral good breath sounds good inspiratory effort Patient is currently in chair Abdomen soft active bowel sounds patient had good breakfast Renal function preserved In general patient is somewhat fluid overloaded and should be diuresed gently We will give 20 of Lasix and diuresis for a few hours before removing the Dougherty catheter Patient can safely be transferred to the floor 05/27/2018 Patient is awake alert and oriented Apparently tonight he was slightly confused which is consistent with ICU delirium pain medication administration and general stress Bilateral good breath sounds good inspiratory effort Abdomen soft taking p.o. diet well Lumbar laminectomy management Dr. Benavidez DC Dougherty We will add Lidoderm patch/Toradol Will adjust pain medication and patient can transfer to the floor 05/28/2018 Patient transferred to floor Awake alert and oriented Walked a little bit around the bed but does not ambulate very well will need some prodding Incision clean and dry Difficulty urinating required straight cath which is not unusual after lumbar laminectomy Patient scheduled to go to [facility] Wednesday Objective Vital Signs / I&O: Vital Signs 05/27/18 16:00 05/27/18 17:00 05/27/18 18:00 Temperature Pulse Rate 92 H 89 90 Respiratory Rate 13 14 Blood Pressure Pulse Oximetry 05/27/18 19:00 05/27/18 19:49 05/27/18 20:00 Temperature 98.4 F Pulse Rate 93 H 90 87 Respiratory Rate 18 18 Blood Pressure 127/58 L Pulse Oximetry 05/27/18 20:43 05/27/18 21:01 05/28/18 00:50 Temperature 98.7 F Pulse Rate 90 92 H Respiratory Rate 18 Blood Pressure 130/68 Pulse Oximetry 93 L 93 L 05/28/18 04:52 05/28/18 08:52 05/28/18 11:07 Temperature 98.1 F 100.8 F H Pulse Rate 90 101 H Respiratory Rate 16 19 18 Blood Pressure 131/60 130/55 L Pulse Oximetry 93 L 88 L 05/28/18 11:33 05/28/18 12:00 Temperature 100.9 F H Pulse Rate 94 H Respiratory Rate 20 18 Blood Pressure 130/60 Pulse Oximetry 94 L Intake & Output 05/27/18 05/28/18 05/28/18 18:59 06:59 18:59 Intake Total 2350 / 2350 120 / 120 Output Total 800 / 800 800 / 800 Balance 1550 / 1550 120 / 120 -800 / -800 Intake: IV 1250 / 1250 NS Inj 1,000 ML @ 100 mls/hr IV 1000 / 1000 .CONT .Q10H [facility] Rx#:[id number] Oral 1100 / 1100 120 / 120 Output: Urine 800 / 800 Urine Amount (Catheter) 800 / 800 Indwelling Urethral Catheter 800 / 800 Other: Date of Last Bowel Movement 05/26/18 05/25/18 Result Diagrams: 05/26/18 05:51 05/26/18 05:51
--- NOTE | 2018-05-28 22:00 | XR ---
EXAM DATE: 05/28/2018 9:57 PM EST AGE/SEX: 78 years / Male INDICATIONS: Shortness of breath. CLINICAL DATA: This is the patient's subsequent encounter. Patient reports that signs and symptoms h ave been present for 4 - 6 days and indicates a pain score of 0/10. MEDICAL/SURGICAL HISTORY: None. Fusion, lumbar. COMPARISON: [facility] [place]ST 2V PA&LAT, 05/18/2018. . FINDINGS: The lungs are clear without infiltrate, nodule, or mass. There is no appreciable pleural effusion for technique. Heart and mediastinum are unremarkable. CONCLUSION: No acute cardiopulmonary disease. Electronically signed by: Renee Alberts MD Board Certified Radiologist 05/28/2018 9:59 PM EST
[2018-05-28 22:12] LABS: Baso # (Auto) 0.1 th/mm3 (0.0-0.2); Baso % (Auto) 0.4 % (0.0-2.0); Eos # (Auto) 0.1 th/mm3 (0.0-0.4); Eos % (Auto) 1.1 % (0.0-4.0); Hematocrit 27.9 % (39.0-51.0); Hemoglobin 9.8 gm/dL (13.0-17.0); Lymph # (Auto) 1.5 th/mm3 (1.0-4.8); Lymph % (Auto) 11.3 % (9.0-44.0); Mean Corpuscular HGB Conc 35.1 % (32.0-36.0); Mean Corpuscular Hemoglobin 29.9 pg (27.0-34.0); Mean Corpuscular Volume 85.2 fL (80.0-100.0); Mean Platelet Volume 8.5 fL (7.0-11.0); Mono % (Auto) 14.6 % (0.0-8.0); Neut # (Auto) 9.7 th/mm3 (1.8-7.7); Neut % (Auto) 72.6 % (16.0-70.0); Platelet Count 100 th/mm3 (150-450); Red Blood Count 3.27 mil/mm3 (4.50-5.90); White Blood Count 13.4 th/mm3 (4.0-11.0)
[2018-05-28 22:34] LABS: Lymphocytes 9 % (9-44); Monocytes 9 % (0-8); Platelet Morphology Normal (Normal)
[2018-05-28 22:37] LABS: Alanine Aminotransferase 25 U/L (12-78); Albumin 3.3 g/dL (3.4-5.0); Alkaline Phosphatase 60 U/L (45-117); Anion Gap 6 meq/L (5-15); Aspartate Aminotransferase 29 U/L (15-37); Blood Urea Nitrogen 12 mg/dL (7-18); Calcium 8.5 mg/dL (8.5-10.1); Carbon Dioxide 30.4 meq/L (21.0-32.0); Chloride 100 meq/L (98-107); Glomerular Filtration Rate 88 mL/min (>89); Glucose,Random 128 mg/dL (74-106); Potassium 3.3 meq/L (3.5-5.1); Sodium 136 meq/L (136-145); Total Protein 7.1 g/dL (6.4-8.2)
[2018-05-29 01:03] LABS: Bilirubin,Urine Negative (Negative); Clarity,Urine Clear (Clear); Color,Urine Yellow (Yellw/Straw); Glucose,Urine (UA) Negative (Negative); Leukocyte Esterase,Urine Negative (Negative); Mucus,Urine Few /lpf (Occasional); Nitrite,Urine Negative (Negative)
[2018-05-29] MEDS: Sod Chloride 0.9% Inj 1,000 ML IV.CONT SCH ×3 (07:00→17:11)
[2018-05-29 07:28] LABS: Baso % (Auto) 0.4 % (0.0-2.0); Eos # (Auto) 0.1 th/mm3 (0.0-0.4); Eos % (Auto) 0.9 % (0.0-4.0); Hematocrit 26.1 % (39.0-51.0); Hemoglobin 9.6 gm/dL (13.0-17.0); Lymph # (Auto) 1.7 th/mm3 (1.0-4.8); Lymph % (Auto) 15.5 % (9.0-44.0); Mean Corpuscular Hemoglobin 31.3 pg (27.0-34.0); Mean Corpuscular Volume 85.2 fL (80.0-100.0); Mean Platelet Volume 8.6 fL (7.0-11.0); Mono # (Auto) 1.8 th/mm3 (0.0-0.9); Mono % (Auto) 16.3 % (0.0-8.0); Neut # (Auto) 7.2 th/mm3 (1.8-7.7); Neut % (Auto) 66.9 % (16.0-70.0); Platelet Count 82 th/mm3 (150-450); Red Blood Count 3.06 mil/mm3 (4.50-5.90); Red Cell Distribution Width 14.9 % (11.6-17.2); White Blood Count 10.8 th/mm3 (4.0-11.0)
[2018-05-29 07:31] LABS: Mean Corpuscular HGB Conc 36.7 % (32.0-36.0)
[2018-05-29] MEDS: Sod Chloride 0.9% Inj 1,000 ML IV.SIG SCH (09:01)
[2018-05-29] MEDS: Lidocaine 5% Patch T-DERMAL SCH (10:09)
[2018-05-29] MEDS: Gabapentin 300 MG Capsule PO SCH ×2 (10:09→21:40)
[2018-05-29] MEDS: Multivitamin/Minerals Therapeutic Tablet PO SCH (10:09)
[2018-05-29] MEDS: Senna/Docusate Sodium 8.6/50 MG Tablet PO SCH ×2 (10:09→21:40)
[2018-05-29] MEDS: ALPRAZolam 0.25 MG Tablet PO PRN ×2 (10:12→21:45)
--- NOTE | 2018-05-29 13:36 | P.PNNS ---
Subjective Interval history: The patient has minimal complaints. He has been stable overnight. Physical Exam Vital signs: Vital Signs 05/28/18 15:40 05/28/18 19:41 05/28/18 20:08 Temperature 98.5 F 100.7 F H Pulse Rate 91 H 97 H Respiratory Rate 20 18 19 Blood Pressure 140/66 126/63 Pulse Oximetry 93 L 94 L 05/28/18 23:06 05/29/18 03:02 05/29/18 08:00 Temperature 99.5 F 98.2 F 98.5 F Pulse Rate 94 H 85 85 Respiratory Rate 19 18 18 Blood Pressure 131/60 133/63 131/61 Pulse Oximetry 93 L 94 L 98 05/29/18 12:00 Temperature 100.1 F H Pulse Rate 89 Respiratory Rate 18 Blood Pressure 140/60 Pulse Oximetry 96 Intake & Output 05/28/18 05/29/18 05/29/18 18:59 06:59 18:59 Intake Total 1320 / 1320 Output Total 1452 / 1452 Balance -1452 / -1452 1320 / 1320 Weight 118.8 kg Intake: Oral 1320 / 1320 Output: Urine 900 / 900 Urine/Stool Mix 2 / 2 Urine Amount (Catheter) 550 / 550 Straight 550 / 550 Other: Post Void Residual 550 # Voids 3 Date of Last Bowel Movement 05/28/18 05/29/18 # Bowel Movements 1 - Routine Neurological Exam The patient is sitting up in a chair is into the room. He is in no acute distress. Mental status testing finds him to be awake and alert. He is oriented by 3. Cognitive function is grossly intact. His speech is fluent. Cranial nerve testing 2 through 12 is grossly intact. There were no focal motor or sensory deficits. He feels he is urinating better. I was unable to evaluate his wound since he was sitting up in a chair with the TLSO in place. He remains continent. - Urinary Catheter Management Indwelling Urethral Catheter Cath placed during this visit: yes Reason for continuing: Not indwelling catheter Insertion date: 05/25/18 Insertion time: 09:10 Straight Cath placed during this visit: yes Reason for continuing: Not indwelling catheter Insertion date: 05/28/18 Insertion time: 14:30 Assessment and Plan - Plan 78 y/o male s/p L4-5 PLIF 12/12/18 cont PT, rehab efforts appreciate critical care assistance SCDs and TEDs dc JUAN drain today transfer when cleared by critical care dc planning to [facility] May 28, 2018 We will continue the present management. We will restart his Flomax from a neurosurgical perspective I see no reason why he cannot be discharged or transferred for a course of inpatient rehabilitation. Neurosurgery will follow. May 29, 2018 Patient has remained stable and I would continue the present management. He apparently is awaiting transfer for a course of inpatient rehabilitation. Neurosurgery will follow.
[2018-05-30] MEDS: Sod Chloride 0.9% Inj 1,000 ML IV.CONT SCH (03:00)
[2018-05-30] MEDS: Sod Chloride 0.9% Inj 1,000 ML IV.SIG SCH (06:45)
[2018-05-30] MEDS: Multivitamin/Minerals Therapeutic Tablet PO SCH (10:52)
[2018-05-30] MEDS: Senna/Docusate Sodium 8.6/50 MG Tablet PO SCH (10:52)
[2018-05-30] MEDS: Lidocaine 5% Patch T-DERMAL SCH (10:52)
[2018-05-30] MEDS: Gabapentin 300 MG Capsule PO SCH (10:52)
--- NOTE | 2018-05-30 12:34 | P.DS ---
Date of admission: 05/25/18 06:25 Primary care physician: Chente Rodriguez DO Brief History from admission: Mr Nichols is a 78 year-old male with history of a prior L4-5 laminectomy and discectomy who presented with intractable mechanical back pain and praveen evidence of L5 lower extremity radiculopathy. He failed maximum nonsurgical management including multiple modalities of nonoperative treatment. A surgical decompression and arthrodesis were indicated as a last resort. DS: Medications - Discharge Medications Prescriptions: gabapentin 900 mg PO BID #60 dose DS: Summary Hospital Course: Mr. Nichols underwent a L4-5 redo laminectomy, interbody arthrodesis using PEEK cage and autologous bone graft, L4-L5 instrumental fixation using transpedicular screws and rods, L4-L5 college counselor lateral fusion using autologous bone graft and demineralized bone matrix. Microsurgical dissection for L4-5 post laminectomy degenerative disk disease with intractable mechanical back pain and radiculopathy on 05/25/18. He was followed by critical care for assistance. He was cleared for discharge to inpatient rehabilitation. - Time Spent with Patient Total time spent providing and/or coordinating discharge services: Less than 30 minutes - Quality: VTE Deep Vein Thrombosis/Pulmonary Embolism Present on Admission: Yes Exam Vital signs: Vital Signs 05/29/18 16:00 05/29/18 19:20 05/29/18 23:02 Temperature 98.0 F 98.6 F 101.1 F H Pulse Rate 91 H 89 95 H Respiratory Rate 18 18 18 Blood Pressure 133/60 148/68 H 122/61 Pulse Oximetry 95 97 92 L 05/30/18 08:00 Temperature 98.2 F Pulse Rate 82 Respiratory Rate 18 Blood Pressure 115/59 L Pulse Oximetry 96 Intake & Output 05/29/18 05/30/18 05/30/18 18:59 06:59 18:59 Intake Total 480 / 480 840 / 840 Output Total 450 / 450 675 / 675 Balance 30 / 30 165 / 165 Weight 118.8 kg Intake: Oral 480 / 480 840 / 840 Output: Urine 450 / 450 675 / 675 Other: # Voids 250 Date of Last Bowel Movement 05/29/18 05/29/18 # Bowel Movements 0 Results Procedures completed during hospitalization: L4-5 redo laminectomy, interbody arthrodesis using PEEK cage and autologous bone graft, L4-L5 instrumental fixation using transpedicular screws and rods, L4 -L5 college counselor lateral fusion using autologous bone graft and demineralized bone matrix. Microsurgical dissection Labs on day of discharge: Preliminary micro results at discharge 05/28/18 21:54 Aerobic Blood Culture - Preliminary Blood - Peripheral No growth in 2 days Anaerobic Blood Culture - Preliminary No growth in 2 days 05/28/18 21:45 Aerobic Blood Culture - Preliminary Blood - Peripheral No growth in 2 days Anaerobic Blood Culture - Preliminary No growth in 2 days - Impressions ITS Impressions Lumbar Spine X-Ray 05/25/18 00:00 CONCLUSION: Status post fusion at the L4-5 level. Chest X-Ray 05/28/18 00:00 CONCLUSION: No acute cardiopulmonary disease. Discharge Plan - Discharge Disposition Patient Disposition: [facility] Rehab Inpatient - Discharge Condition Condition: Stable - Discharge Order Discharge Orders: Discharge Order (Routine); Ordered 05/30/18 Ordered By: Chanelle Gibbons - Physicians Team Primary Care Provider: Chente Rodriguez Attending Provider: Kyrie Benavidez Other Providers: Ricco Iglesias MD ; Maged Collins MD ; Systems, [employer] ; Andres Thurston MD ; Marilyn Diaz ARNP ; Orestes Myers MD ; Alfreda Guillory MD ; Rosa Carrillo ARNP ; Kim Mckenna MD ; Arlyn Greenberg MD - Rxs /Orders / Referrals /Forms Prescriptions: Continue alprazolam 0.25 mg Tablet 0.25 mg PO BID PRN (Reason: Anxiety) gabapentin 300 mg Capsule 900 mg PO BID Qty: 60 [id number] [Daily Multivitamin] 200-100-500 mcg Capsule 1 tab PO DAILY simvastatin 20 mg Tablet 20 mg PO QPM tamsulosin 0.4 mg Capsule 0.4 mg PO BID Discontinued meloxicam 7.5 mg Tablet 7.5 mg PO DAILY Referrals: Chente Rodriguez DO [Primary Care Provider] - See Instructions - Discharge Instructions Patient Printed Instructions: Alprazolam (By mouth), Gabapentin (By mouth), Laminectomy (DC), Anxiety (DC), Anxiety (GEN), JACKELYN Hose (DC), Lumbar Brace (DC) Additional Instructions: FOLLOWUP WITH DR. BENAVIDEZ ORDERED. CALL OFFICE TO VERIFY APPOINTMENT.Your Health Problems: Goals to Promote Your Health: * To prevent worsening of your condition * To maintain your health at the optimal level Directions to Meet Your Goals: * Take your medications as prescribed * Follow your dietary instruction * Follow activity as directed * Keep your appointments as scheduled * Take your immunizations and boosters as scheduled * If your symptoms worsen call your PCP * If no PCP go to Urgent Care or Emergency Room Smoking is dangerous to your health. Avoid second hand smoke. You may reach the 24-hour crisis hotline for domestic abuse at .
[2018-05-30 14:07] VITALS: BP 155/67; PULSE 89; RESP 16; TEMP 97.9; O2SAT 93
== END 2018-05-30 14:45 ==
LOC: HSDI 06:25 → N03 16:26 → N06 05-27 22:40
PROVIDERS: ADMIT Neurological Surgery; ATTEND Neurological Surgery